=== PATIENT | male | born 2000 | race Hispanic/Latino ===

== ENCOUNTER 2023-05-09 11:00 | Emergency (ER) | payer OTHER ==
[~2023-05-09] VITALS: Ht 175.3 cm; Wt 140.2 kg
[2023-05-09 11:11] VITALS: BP 159/88; PULSE 89; RESP 16; O2SAT 100
[2023-05-09 12:33] LABS: RAPID GROUP A STREP negative (NEGATIVE)
[2023-05-09 12:41] LABS: SARS-CoV-2, RNA, NAAT NEGATIVE SARS CoV-2 (NEGATIVE)
[2023-05-09] MEDS ORDERED: ALBUHFA IH (12:44)
[2023-05-09 12:45] LABS: INFLUENZA TYPE A Negative For Type A (NEGATIVE)
[2023-05-09 12:51] LABS: INFLUENZA TYPE B Positive For Type B (NEGATIVE)
[2023-05-09] MEDS ORDERED: OSEL75 PO (12:55)
== END 2023-05-09 13:01 | disposition home or self-care (01) ==
LOC: EDH 11:00
DX: R07.89 Other chest pain (principal); J10.1 Influenza due to other identified influenza virus with other respiratory manifestations; J45.909 Unspecified asthma, uncomplicated; Z20.822 Contact with and (suspected) exposure to COVID-19
CPT/HCPCS: 99283; 87635; 87880; 87804 ×2; C9803